=== PATIENT | male | born 2000 | race Two or more races ===

== ENCOUNTER 2020-09-26 03:06 | Emergency (ER) | payer OTHER ==
[~2020-09-26] VITALS: Ht 170.2 cm; Wt 94.6 kg
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
[2020-09-26 03:26] VITALS: BP 156/92
[2020-09-26] MEDS ORDERED: IBUP-571 PO (03:29)
[2020-09-26] MEDS ORDERED: ACET500T68 PO (03:29)
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
== END 2020-09-26 03:45 | disposition home or self-care (01) ==
LOC: ER 03:06
DX: S20.219A Contusion of unspecified front wall of thorax, initial encounter (principal); R51.9 Headache, unspecified; M54.2 Cervicalgia; E04.1 Nontoxic single thyroid nodule; V98.8XXA Other specified transport accidents, initial encounter; Y93.I9 Activity, other involving external motion; Y92.488 Other paved roadways as the place of occurrence of the external cause; Y99.8 Other external cause status
CPT/HCPCS: 70450; 71046; 72125; 99285-25

== ENCOUNTER 2021-02-17 04:40 | Emergency (ER) | payer OTHER ==
[~2021-02-17 04:40] MED LIST: ACET500T68 PO; IBUP-571 PO
--- NOTE | 2021-02-17 08:09 | RAD ---
Examination: 3 views of the left ankle and left foot HISTORY: History of fall, pain, swelling COMPARISON: None available FINDINGS: The alignment of the ankle mortise grossly appears unremarkable. There is mild soft tissue swelling i dentified lateral to lateral malleolus. There is transverse minimal displaced fracture of the base of the fifth metatarsal. IMPRESSION: Minimal displaced fracture of the base of the fifth metatarsal. Electronically signed by: Antolin Macias MD (02/17/2021 8:07 AM) [id number]
--- NOTE | 2021-02-28 07:33 | PHYS DOC ---
Past History Past Medical History: No Pertinent History Past Surgical History: No Surgical History Alcohol Use: None General Adult EDM: Chief Complaint: FOOT INJURY PAIN HPI: HPI: ".. I was skateboarding and kind of messed up this left foot and ankle.. 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 Patient inverted right ankle. Patient denies any other injury during the fall. Patient denies any specific ill contacts. Works at the long term on [facility] [employer] [facility] [employer]. No recent travel outside the [place] area. Normally healthy. Up-to-date vaccinations. Patient has obvious abrasion to ankle and edema. With laxity on anterior draw. Positive foot squeeze. Localization to 5th metatarsal area. Distal neurovascular equal to right foot. Review of Systems: Review of Systems: Constitutional: Denies fever or chills Eyes: Denies change in visual acuity HENT: Denies nasal congestion or sore throat Respiratory: Denies cough or shortness of breath Cardiovascular: Denies chest pain or edema GI: Denies abdominal pain, nausea, vomiting, bloody stools or diarrhea : Denies dysuria Musculoskeletal: Denies back pain or joint pain Integument: Denies rash Neurologic: Denies headache, focal weakness or sensory changes Endocrine: Denies polyuria or polydipsia Lymphatic: Denies swollen glands Psychiatric: Denies depression or anxiety Allergies: Allergies: Allergies Coded Allergies Type Severity Reaction Last Updated Verified No Known Drug Allergies 09/26/20 No Physical Exam: PE: Constitutional: Well developed, well nourished, no acute distress, non-toxic appearance. [] HENT: Normocephalic, atraumatic, bilateral external ears normal, oropharynx moist, no oral exudates, nose normal. [] Eyes: PERRLA, EOMI, conjunctiva normal, no discharge. [] Neck: Normal range of motion, no tenderness, supple, no stridor. [] Cardiovascular:Heart rate regular rhythm, no murmur [] Lungs & Thorax: Bilateral breath sounds clear to auscultation [] Abdomen: Bowel sounds normal, soft, no tenderness, no masses, no pulsatile masses. [] Skin: Warm, dry, no erythema, no rash. [] Back: No tenderness, no CVA tenderness. [] Extremities: No tenderness, no cyanosis, no clubbing, ROM intact, no edema. [] Except findings of complaints of injury and left foot and ankle as per HPI Neurologic: Alert and oriented X 3, normal motor function, normal sensory function, no focal deficits noted. [] Psychologic: Affect normal, judgement normal, mood normal. [] EKG: EKG: [] Radiology/Procedures: Radiology/Procedures: [][place] [address] IMAGING REPORT Signed PATIENT: ROBERT العلي ACCOUNT: [id number] : 2000 LOCATION: ER AGE: 20 SEX: M EXAM STATUS: DEP ER ORD. PHYSICIAN: ANTELMO SEPULVEDA MD REASON: FALL, PAIN AND SWELLING PROCEDURE: ANKLE LEFT 3V Examination: 3 views of the left ankle and left foot HISTORY: History of fall, pain, swelling COMPARISON: None available FINDINGS: The alignment of the ankle mortise grossly appears unremarkable. There is mild soft tissue swelling identified lateral to lateral malleolus. There is transverse minimal displaced fracture of the base of the fifth metatarsal. IMPRESSION: Minimal displaced fracture of the base of the fifth metatarsal. Electronically signed by: Antolin Macias MD (02/17/2021 8:07 AM) [id number] DICTATED AND SIGNED BY: ANTOLIN MACIAS MD DATE: 02/17/21 0800 CC: ANTELMO SEPULVEDA MD; PCP,NO ~MTH0 [address] [address] IMAGING REPORT Signed PATIENT: ROBERT العلي ACCOUNT: [id number] : 2000 LOCATION: ER AGE: 20 SEX: M EXAM STATUS: DEP ER ORD. PHYSICIAN: ANTELMO SEPULVEDA MD REASON: FALL, PAIN AND SWELLING PROCEDURE: FOOT LEFT 3V Examination: 3 views of the left ankle and left foot HISTORY: History of fall, pain, swelling COMPARISON: None available FINDINGS: The alignment of the ankle mortise grossly appears unremarkable. There is mild soft tissue swelling identified lateral to lateral malleolus. There is transverse minimal displaced fracture of the base of the fifth metatarsal. IMPRESSION: Minimal displaced fracture of the base of the fifth metatarsal. Electronically signed by: Antolin Macias MD (02/17/2021 8:07 AM) [id number] DICTATED AND SIGNED BY: ANTOLIN MACIAS MD DATE: 02/17/21 0800 CC: ANTELMO SEPULVEDA MD; PCP,NO ~MTH0 0 Heart Score: C/O Chest Pain: N/A Risk Factors: Risk Factors: DM, Current or recent (<one month) smoker, HTN, HLP, family history of CAD, obesity. Risk Scores: Score 0 - 3: 2.5% MACE over next 6 weeks - Discharge Home Score 4 - 6: 20.3% MACE over next 6 weeks - Admit for Clinical Observation Score 7 - 10: 72.7% MACE over next 6 weeks - Early Invasive Strategies Course & Med Decision Making: Course & Med Decision Making Pertinent Labs and Imaging studies reviewed. (See chart for details) Patient wear a stiff shoe. Elevate foot. Take Tylenol and ibuprofen for pain. Wear splint. Follow-up with [facility]. Distal neurovascular intact after splint Impression: 1. Left ankle sprain 2. Left foot sprain 3. Fracture fifth metatarsal [] Dragon Disclaimer: Dragpatrick Disclaimer: This electronic medical record was generated, in whole or in part, using a voice recognition dictation system. Departure Departure: Impression: Primary Impression: Foot fracture, left Disposition: 01 HOME / SELF CARE / HOMELESS Condition: GUARDED Dragon Disclaimer This chart was dictated in whole or in part using Voice Recognition software in a busy, high-work load, and often noisy Emergency Department environment. It may contain unintended and wholly unrecognized errors or omissions. ANTELMO SEPULVEDA MD Feb 28, 2021 07:33
== END 2021-02-17 05:44 | disposition home or self-care (01) ==
LOC: ER 04:40
DX: S92.352A Displaced fracture of fifth metatarsal bone, left foot, initial encounter for closed fracture (principal); S93.402A Sprain of unspecified ligament of left ankle, initial encounter; S93.602A Unspecified sprain of left foot, initial encounter; X50.9XXA Other and unspecified overexertion or strenuous movements or postures, initial encounter; Y93.89 Activity, other specified; Y92.89 Other specified places as the place of occurrence of the external cause; Y99.8 Other external cause status
CPT/HCPCS: 29515; 73610; 73630; 99284